=== PATIENT | female | born 1975 | race African-American/Black ===

== ENCOUNTER 2018-11-11 13:24 | Inpatient (IN) ==
[2018-11-11] MEDS ORDERED: MORPHINE IV ONE (14:06)
[2018-11-11] MEDS ORDERED: ZOFRAN IM ONE (14:06)
--- NOTE | 2018-11-11 14:17 | PROVIDER DOCUMENTATION ---
HPI-Abdominal Pain/GI Problem - General Chief Complaint: Abdominal Pain Stated Complaint: N/V, ABD PAIN Time Seen by Provider: 11/11/18 14:01 Source: patient Allergies/Adverse Reactions: Patient Allergies Allergy/AdvReac Type Severity Reaction Status Date / Time latex Allergy ITCHING Verified 11/11/18 14:46 tuberculin, purified protein Allergy RASH Verified 11/11/18 14:46 deriva [tuberculin,purif.prot.deriv.] Home Medications: Home Medication List Medication Instructions Recorded Confirmed Last Taken Type NK [No Home Medications] 11/11/18 11/11/18 Unknown History - History of Present Illness-ABD Nature of Presenting Problems: 43 YEAR OLD FEMALE WHO SELF DENIES ANY PAST MEDICAL HISTORY CAME IN TODAY WITH EPIGASTIC ABDOMINAL DISCOMFORT THAT STARTED TODAY. ACCORDING TO THE PATIENT, IT RADIATES TO THE BACK AND IS ASSOCIATED WITH NAUSEA AND VOMITING. PATIENT ALSO ENDORSE DIARRHEA. DENIES FEVER, CHILL, NIGHT SWEATS, DIZZINESS, LIGHTHEADEDNESS, BLURRY VISION, SORE THROAT, CHEST PAIN, DYSPNEA, CONSTIPATION, MYALGIA, ARTHRALGIA, NEW RASH/LESION, AND HEAT OR COLD INTOLERANCE. DENIES ANY RECENT TRAVEL. Review of Systems - Adult - REVIEW OF SYSTEMS - ADULT Constitutional: denies: chills, fever, night sweats Eyes: reports: no symptoms reported Ears, Nose, Mouth & Throat: denies: throat pain Cardiovascular: denies: chest pain, irregular heart rate, palpitations, syncope Respiratory: denies: cough, shortness of breath Gastrointestinal: reports: abdominal pain (EPIGASTRIC REGION THAT RADIATES TO THE BACK.), diarrhea, nausea, vomiting. denies: hematemesis, constipation Genitourinary: reports: no symptoms reported Musculoskeletal: reports: no symptoms reported Integumentary: denies: rash Neurological: denies: ataxia, syncope Psychiatric: reports: no symptoms reported Endocrine: denies: cold intolerance, heat intolerance Hematologic/Lymphatic: reports: no symptoms reported Allergic/Immunologic: reports: no symptoms reported Past History - Adult - PAST MEDICAL HISTORY-ADULT Review of Records: reports: Old Records Reviewed Major Childhood Illnesses: reports: denies history Cardiovascular: reports: denies history Respiratory: reports: denies history Gastrointestinal: reports: denies history Obstetrical/Gynecological: reports: denies history Genitourinary: reports: denies history Musculoskeletal: reports: denies history Neurological: reports: denies history Psychiatric: reports: denies history Endocrine/Immune: reports: denies history Other Conditions: reports: denies history - PRIOR SURGERIES/PROCEDURES Surgical/Procedure History: reports: other (breast biopsy to right breast) - PRIOR HOSPITALIZATIONS Prior Hospitalizations: reports: none - IMMUNIZATION STATUS Childhood Immunizations: See Nurse Assessment Flu Vaccine: NUTD - FAMILY HISTORY Family History: reviewed, not pertinent Physical Exam-General - PHYSICAL EXAM-ADULT Initial Vital Signs Reviewed: Yes - CONSTITUTIONAL General Appearance: alert, mild distress - EYES Eyes: PERRL/EOMI. negative: pink conjunctivae, photophobia, subconjunctival hemorrhage - HEAD, EARS, NOSE, MOUTH & THROAT HENMT: normocephalic/atraumatic, moist mucous membranes - NECK Neck: non-tender, full range of motion, normal inspection - RESPIRATORY Respiratory: chest non-tender, lungs clear, normal breath sounds - CARDIOVASCULAR Cardiovascular: normal peripheral pulses, regular rate, rhythm, no edema, no gallop, no JVD, no murmur - GASTROINTESTINAL (ABDOMEN) Abdominal Exam: normal bowel sounds, guarding, rigid, tenderness (TENDERNESS ON PALPATION; NO REBOUND TENDERNESS.). negative: rebound, McBurney's point tenderness, Ibarra's sign, Rovsing's sign - MUSCULOSKELETAL Back Exam: normal inspection, no CVA tenderness Extremity: normal range of motion - SKIN Integumentary: normal color, normal turgor, warm/dry - NEUROLOGIC Neurologic: grossly normal - PSYCHIATRIC Psych/Mental Status: normal mood/affect, normal thought content, normal thought process, oriented x 3 Progress - PLAN OF CARE/RESULTS Progress/Plan/Lab Results: Vital Signs - 8 hr 11/11/18 14:04 Pulse Rate 80 Respiratory Rate 22 Blood Pressure 101/67 Orders Category Date Time Status CT ABD/PELVIS W/IV CONT ONLY [CT] Stat Exams 11/11/18 14:08 Ordered AMYLASE [CHEM] Stat Lab 11/11/18 14:06 Ordered BETA SUBUNIT HCG [PIMENTEL] Stat Lab 11/11/18 14:06 Ordered CBC WITH ELECTRONIC DIFF [HEME] Stat Lab 11/11/18 14:06 Uncollected COMPREHENSIVE METABOLIC PANEL [CHEM] Stat Lab 11/11/18 14:06 Uncollected LIPASE [CHEM] Stat Lab 11/11/18 14:06 Uncollected MAGNESIUM [CHEM] Stat Lab 11/11/18 14:06 Uncollected URINALYSIS DIPSTICK ONLY PL [URINALYSIS] Stat Lab 11/11/18 14:06 Uncollected Morphine Med 11/11/18 14:06 Discontinued 4 mg IV NOW ONE Ondansetron [Zofran] Med 11/11/18 14:06 Discontinued 4 mg IM NOW ONE Result Diagrams: 11/11/18 14:30 11/11/18 14:30 - REASSESSMENT Reassessment #1 Time Reassessed: 16:24 Status: other (FOBT POSITIVE; WILL TRANSFUSE. IMAGE REVEAL: Multiple nonspecific pelvic masses which may simply be an enlarged uterus containing multiple fibroids as well as multiple large left ovarian cysts. Gynecological consultation and further workup recommended. WHICH I HAVE INFOMRED THE PATIENT. GIVEN PATIENT H/H IS LOW, I WILL START TRANSUFION AND CALL HOSPITALIST FOR FUR THER GI WORK UP. PENDING HOSPITALIST TO CALL BACK.) Reassessment #2 Time Reassessed: 16:47 Status: other (SPOKE TO PATIENT REGARDING HER CT FINDING WHICH I HAVE INFORMED THAT IF NO SERGING MACHINE OPERATOR AUTOMATIC IS CONSULTED WHILE INPATIENT, SHE IS TO FOLLOW UP WITH SERGING MACHINE OPERATOR AUTOMATIC OF HER CHOICE IAN ONCE SHE IS DISHCARGED. HOSPITALIST CALLED BACK AND INFORMED OF GIB; APPRECAITE THEIR ASSISTANCE.) Departure - Departure Date of Disposition Decision: 11/11/18 Time of Disposition Decision: 16:25 DIAGNOSIS: GIB (gastrointestinal bleeding), Ovarian cyst, Uterine fibroid Disposition: ADMITTED INPATIENT 09 Certified Medical Emergency: Emergent Condition: Serious Referrals and Follow-Ups: None,PCP [Primary Care Provider] - - Critical Care Note This patient required my direct & personal management of CC.: No Attestation - Physician/ MARIA M Attestation Patient care was provided by Advanced Practice Provider:: No The physician spent face to face time with patient:: Yes Advanced Practice Provider documentation review:: Supervising physician onsite and consulted in the evaluation and care of this patient. The physician did have a face to face encounter with the patient.
[2018-11-11] MEDS ORDERED: NS 1,000 ML IV ONE (14:21)
[2018-11-11 14:44] LABS: URINE SOURCE CLEAN CATCH
[2018-11-11 14:46] LABS: BILIRUBIN URINE NEGATIVE (NEGATIVE); BLOOD URINE 3+ (NEGATIVE); CLARITY CLEAR (CLEAR); COLOR YELLOW; GLUCOSE URINE NEGATIVE (NEGATIVE); KETONE URINE TRACE mg/dL (NEGATIVE); LEUKOCYTES URINE TRACE (NEGATIVE); NITRITE URINE NEGATIVE (NEGATIVE); PH URINE 6.5; PROTEIN URINE 1+(30 mg/dL) mg/dL (NEGATIVE); UROBILINOGEN URINE NORMAL
[2018-11-11 14:59] LABS: BASO# 0.03 X1000 (0.0-0.2); BASO% 0.3 % (0.0-0.8); EOS# 0.02 X1000 (0.0-0.7); EOS% 0.2 % (0.0-10.0); HEMATOCRIT 22.4 % (37.0-47.0); IMM GRAN# 0.04 X1000 (0.0-0.04); IMM GRAN% 0.4 % (0.0-0.5); LYMPH# 0.72 X1000 (1.2-3.4); LYMPH% 6.4 % (20.5-51.1); MCH 16.7 PG (27-31); MCHC 24.6 g/dL (33-37); MCV 67.9 FL (81-99); MONO# 0.58 X1000 (0.11-0.59); MONO% 5.2 % (1.7-9.3); MPV 8.6 FL (7.4-10.4); NEUT# 9.87 X1000 (1.4-6.5); NEUT% 87.5 % (42.2-75.2); PLT 365 X1000 (130-400); RDW 21.9 % (11.5-14.5); WBC 11.26 X1000 (4.8-10.8)
[2018-11-11 15:02] LABS: AGAP 13; ALBUMIN 4.3 g/dL (3.5-5.0); ALKALINE PHOSPHATASE 42 U/L (32-104); BUN 5 mg/dL (8-22); CHLORIDE 106 mmol/L (98-107); COSMO 282; CREATININE 0.6 mg/dL (0.5-0.9); ESTIMATED GFR > 60; GLUCOSE 120 mg/dL (70-104); GOT 12 U/L (10-30); GPT 9 U/L (10-36); HEMOGLOBIN 5.5 g/dL (12.0-16.0); LIPASE 14 U/L (13-60); MAGNESIUM 1.6 mg/dL (1.5-2.7); SODIUM 142 mmol/L (136-145); TCO2 23 mmol/L (25-35); TOTAL PROTEIN 7.1 g/dL (6.3-8.3)
--- NOTE | 2018-11-11 15:49 | Diag Imaging Result Doc PS360 ---
EXAM: CT ABD/PELVIS W/IV CONT ONLY HISTORY: EPIGASTIC ABD PAIN + N + V TECHNIQUE: CT abdomen and pelvis with intravenous contrast COMPARISON: None. FINDINGS: No calcified gallstones or adjacent inflammation. Normal liver, spleen, pancreas, adrenal glands, and kidneys. Normal aorta. No bowel obstruction. Pelvic mass measuring 8.8 x 12.3 x 11.1 cm. With in this are multiple hypodense areas measuring up to 5.2 cm. This may be an enlarged uterus containing multiple fibroids. 6.0 cm left adnexal cyst. There is an additional hypodense lesion measuring 5.8 cm in the posterior left pelvis. The urinary bladder is only mildly distended. IMPRESSION: Multiple nonspecific pelvic masses which may simply be an enlarged uterus containing multiple fibroids as well as multiple large left ovarian cysts. Gynecological consultation and further workup recommended. This exam was performed using automated exposure control, adjustment of mA or kV according to patient size, and/or use of iterative reconstruction technique. Electronically signed by Mich Dow 11/11/2018 3:46 PM
[2018-11-11 15:55] LABS: OCCULT BLOOD 1 POSITIVE (NEGATIVE)
[2018-11-11] MEDS ORDERED: NS 500 ML IV ONE (16:55)
[2018-11-11] MEDS ORDERED: TYLENOL PO ONE (16:55)
[2018-11-11] MEDS ORDERED: ZOFRAN IV PRN (21:03)
[2018-11-11] MEDS: NICODERM PATCH TD SCH (21:53)
[2018-11-11] MEDS: MORPHINE IV PRN (21:53)
--- NOTE | 2018-11-11 22:35 | HISTORY AND PHYSICAL ---
CHIEF COMPLAINT: Nausea, abdominal pain. HISTORY OF PRESENT ILLNESS: The patient is a 43-year-old female who presented to the hospital with epigastric abdominal pain. After questioning, she notes that she does take multiple Goody's powders a day and has so for many years. She notes she has been having epigastric pain, seems to radiate to her back. ALLERGIES: Latex and TB skin test causing a rash. MEDICATIONS: She is on no prescription medications, but does note that she takes multiple Goody's powders a day as well as Aleve or ibuprofen. REVIEW OF SYSTEMS: Positive epigastric abdominal pain. Denies fevers, chills, cough, congestion. Denies sore throat, headaches, blurred vision. Denies any focalized numbness, tingling, weakness in her extremities. Denies dysuria, urinary frequency, or urgency. Denies constipation, melena, hematochezia. PAST MEDICAL HISTORY: She denies any chronic active medical problems, other than arthritis, for which she takes Goody's Powders. She did have a breast biopsy that was negative. FAMILY HISTORY: Noncontributory. SOCIAL HISTORY: Patient denies alcohol or illicit substance use. PHYSICAL EXAMINATION: VITAL SIGNS: Reviewed. She is afebrile, pulse 80, respiratory 22, BP 85 to 101 systolic. GENERAL: Patient is awake, alert. She is sitting up on the side of the bed. She is in no current respiratory distress. HEENT: Normocephalic, atraumatic. PAVITHRA. NECK: Supple. No JVD. CARDIOVASCULAR: Regular rate. No murmurs. CHEST: Clear, nonlabored. ABDOMEN: Soft. Positive bowel sounds. She does have tenderness in the epigastric region. No rebound. No guarding. EXTREMITIES: Moves all extremities. No edema. NEUROLOGIC: No focal neurological changes. SKIN: Warm, dry. No rashes. LABS: Hemoglobin and hematocrit 5 and 22. Glucose 120. ASSESSMENT: 1. Anemia from gastrointestinal bleeding. She is Heme-positive. 2. Gastrointestinal bleed, likely upper GI. 3. Uterine fibroids. PLAN: We will admit patient to the hospital. Type, cross, and transfuse 2 units. We will transfer to [facility], [place], as she will need to have endoscopy given her large amount of Goody's powders that she takes and the fact that she is Heme-positive. Attempted to answer patient's questions about transfusions, risks, and benefits. cc: Kal Urbina MD
[2018-11-12] MEDS: MORPHINE IV PRN (04:11)
[2018-11-12 08:10] LABS: HEMATOCRIT 25.8 % (37.0-47.0); HEMOGLOBIN 7.1 g/dL (12.0-16.0); MCH 19.8 PG (27-31); MCHC 27.5 g/dL (33-37); MCV 71.9 FL (81-99); MPV 9.8 FL (7.4-10.4); RBC 3.59 XMIL (4.2-5.4); RDW 21.9 % (11.5-14.5); WBC 7.81 X1000 (4.8-10.8)
[2018-11-12 08:32] LABS: AGAP 11; ALB/GLOB RATIO 1.3; ALBUMIN 3.7 g/dL (3.5-5.0); ALKALINE PHOSPHATASE 42 U/L (32-104); BUN 4 mg/dL (8-22); CALCIUM 8.8 mg/dL (8.8-10.2); CHLORIDE 109 mmol/L (98-107); COSMO 278; CREATININE 0.8 mg/dL (0.5-0.9); ESTIMATED GFR > 60; GLUCOSE 87 mg/dL (70-104); GOT 17 U/L (10-30); GPT 12 U/L (10-36); MAGNESIUM 1.9 mg/dL (1.5-2.7); POTASSIUM 4.1 mmol/L (3.5-5.1); SODIUM 141 mmol/L (136-145); TCO2 21 mmol/L (25-35); TOTAL BILIRUBIN 0.66 mg/dL (0.20-1.00); TOTAL PROTEIN 6.6 g/dL (6.3-8.3)
[2018-11-12] MEDS: NICODERM PATCH TD SCH (08:42)
[2018-11-12] MEDS: PROTONIX PO SCH ×2 (12:00→20:24)
--- NOTE | 2018-11-12 12:51 | PROGRESS NOTE ---
DATE: 11/12/2018 SUBJECTIVE: This patient is lying comfortably in bed. She is complaining of lower abdominal pain and, also, she is complaining of some dysphagia. As per the patient, she has been losing weight for the past couple of years. Also, she has been taking Goody Powder on a daily basis and multiple times a day, up to 6 times. She denies melena. On the other hand, she has been having heavy menstrual periods. Her MCV is low as well as her hemoglobin. Initially, it was 5.5 but after 2 PRBCs, it increased to 7.1 which is still low but she is not having symptoms and vital signs are stable. Before admission, she was having dizziness. OBJECTIVE: Vital Signs: Temperature 98.6 degrees, pulse 81, respiratory rate 18, blood pressure 122/72, oxygen saturation 98 on room air. HEENT: Head normocephalic. No trauma. PERRLA. Neck: Supple. No JVD. No masses. Central trachea. Chest: Clear to auscultation. No wheezing. No rales. Abdomen: Soft. Tenderness to palpation at the level of the lower abdomen. No signs of peritoneal irritation. Extremities: No edema, no clubbing, no cyanosis. Neurological Examination: The patient is alert and oriented x3. No focal deficits. Laboratory: WBCs 7.8, hemoglobin 7.1, platelet count 292,000. Sodium 141, potassium 4.1, chloride 109, bicarbonate 21, BUN 4, creatinine 0.8, glucose 87, calcium 8.8. ASSESSMENT AND PLAN: 1. Symptomatic anemia. She does have a positive occult blood in the stool but also, she is having menorrhagia. I have consulted both gastroenterology department and obstetrics/gynecology to evaluate this patient. 2. Uterine fibroids and menorrhagia, status post 2 units of packed red blood cells. I have consulted obstetrics/gynecology to evaluate this patient. As per the patient, she has been 2- 1/2 years with heavy menstrual periods. 3. Possible upper gastrointestinal bleed. This patient has a risk factor for upper gastrointestinal bleed. She has been taking Goody Powders multiple times a day. cc: Mik Rehman MD MTDDavid
--- NOTE | 2018-11-12 14:46 | Diag Imaging Result Doc PS360 ---
EXAM: US PELVIC NON-OB COMPLETE 11/12/2018 HISTORY: uterine fibroids, ovarian mass TECHNIQUE: Transabdominal scan COMMENT: There are numerous myometrial masses. There is a fairly large heterogeneous mass in a submucosal location in the fundus anteriorly measuring up to 4.3 cm in diameter. Posteriorly there is a subserosal mass which measures in excess of 5.5 cm. The overall size of the uterus is 16.6 x 10 x 8.5 cm with an endometrial stripe (where it can be recognized) of 7 mm. The right ovary is demonstrated measuring up to 4.2 cm. There is what appears to be a hemorrhagic ovarian cyst on the left measuring 5.9 cm in greatest dimension. IMPRESSION: Fibroid uterus. Left ovarian cyst. This is smaller than the abnormality which was demonstrated on the CT of 11/11/2018. It is possible that only the anterior portion of the multilocular cystic mass which was demonstrated on the CT is visible on the ultrasound. Electronically signed by Seun Rodríguez 11/12/2018 2:44 PM
--- NOTE | 2018-11-12 19:10 | GASTROENTEROLOGY CONSULTATION ---
DATE: 11/12/2018 REASON FOR CONSULT: Anemia. HISTORY OF PRESENT ILLNESS: Ms. Bean is a 43-year-old female who was [facility] with complaints of shortness of breath, abdominal pain, describing it as sharp and rating it as 10 out of 10, throat pain, nausea, vomiting, diarrhea, and denied noticing blood in the stools. She came to [facility] in the afternoon feeling weak, dizzy, drowsy. She mentioned having swallowing problems in the past, but since 1 month she has been eating well. She takes 6 packs of BC powders every day for her headaches. Today, she had 1 bowel movement, liquid form. Expressed feeling anxious, has history of smoking pot, alcohol 1-2 or shots frequently, and smokes 1/2 a pack of cigarettes every other day. She has lost approximately 30-40 pounds in the last 2 years. Her last menstrual cycle was 2 weeks back, had heavy bleeding and huge clots lasting for 7 days and gets it twice a month. PAST MEDICAL HISTORY: Breast tumor, alcohol abuse, drug abuse, smoker. SURGICAL HISTORY: Breast tumor removed. ALLERGIES: Latex, TB shots, penicillin and hydrocodone. MEDICATIONS: None SOCIAL HISTORY: She is single, has 1 daughter, used to work at [employer], quit her job last week, smokes 1/2 pack of cigarettes every other day, drinks 1-2 shots frequently of alcohol and does pot once or twice a month. FAMILY HISTORY: Mother's side, the family has breast cancer, leukemia, glaucoma, hypertension, hyperlipidemia, and thyroid and cancer. REVIEW OF SYSTEM: As per HPI. Otherwise, 12 point review of system is negative. PHYSICAL EXAMINATION: Vital Signs: Temperature 98.6 degrees, pulse 81, respirations are 18, blood pressure 122/72, oxygen saturation is 98% on room gender. Weight 115.7 pounds, BMI 18.2 kg per meter square. General: Alert, oriented x3, and in no acute distress. HEENT: Pale conjunctivae. No icterus. PERRL. Neck: Supple. Lungs: Clear to auscultation in anterior and posterior simental. Heart: Regular rate and rhythm. No gallops, rubs, or murmur heard on auscultation. Abdomen: Soft, tender, nondistended. Active bowel sounds heard in all 4 quadrants. Extremities: No cyanosis, clubbing, or edema noted. 2+ pedal pulses present bilaterally. Neuro: Alert, oriented x3. Nonfocal. Cranial nerves 2-12 grossly intact. LABORATORIES: WBC is 7.8, RBC is 3.59, hemoglobin is 7.1, hematocrit is 25.8, platelet count is 292,000. Sodium is 141, potassium is 4.1, chloride is 109, carbon dioxide is 21, anion gap is 11, BUN is 4, creatinine 0.8, glucose is 87, calcium is 8.8, magnesium 1.9. Total bilirubin 0.66, AST 17, ALT is 12. Alkaline phosphatase 42, amylase 86, lipase is 14. Urine showed a trace of protein, trace blood, 3+ blood, trace of white blood cells. IMAGING: Abdominal CT and pelvis showed multiple nonspecific pelvic masses which may be simply due to an enlarged uterus, connected to the multiple fibroids as well as multiple large ovarian cysts. IMPRESSION AND PLAN: Abdominal pain Nausea, vomiting. Gastrointestinal bleed. Dysphagia Uterine fibroid. Smoker Drug abuse Alchohol abuse. PLAN: Patient clear liquids for now, NPO after midnight. We will be doing an EGD tomorrow, start her on proton pump inhibitor 40 mg p.o. twice a day, antiemetics Zofran for nausea. Based on her EGD findings, further plan of care will be discussed. Risks, benefits, and alternatives of the surgery have been explained to the patient. Patient verbalized understanding of the instructions. Discussed the risk of smoking, consuming alcohol and pot, advised cessation of all these products. This plan was discussed with Dr. Jansen and the patient. Thank you for your consult. consult. Please call us for any further questions or concerns. Dictated by BEKAH Garcia for Blayne Jansen MD Physician Attestation I have seen and examined the patient. I have discussed and reviewed the the note by Rola GODFREY and agree with findings and plan as documented. In brief, Ms. Liliana Bean is a 43 year old woman with history of KRISTY, menorrhagia, chronic headaches who presented with worsening symptomatic KRISTY. She reports solid-food dysphagia and weight loss over the last 1-2 years. She takes copious amounts of BC powders daily and has heaving menses that can last 1-2 weeks. She reports reflux and epigastric pain for which she self-medicates with Tums and antacids. No PPI use. She denies prior EGD/colonoscopy. Her anemia can certainly be GI related given copious NSAID use. Continue PPI IV BID and make NPO after MN for EGD with Dr. Leon tomorrow. If negative, then recommend outpatient colonoscopy and [employer]ING [employer] MACHINE evaluation given menorrhagia. MTDD
--- NOTE | 2018-11-13 04:47 | CONSULTATION ---
DATE OF CONSULTATION: 11/12/2018 ADMITTING PHYSICIAN: Mik Rehman MD. REASON FOR CONSULTATION: Uterine mass, vaginal bleeding, and anemia. HISTORY OF PRESENT ILLNESS: A 43-year-old G2, P1-0-1-1, presented to the ER on 11/11 with a complaint of epigastric abdominal pain and dysphagia. Hemoglobin upon admission was 5.5, and CT of the pelvis showed a pelvic mass measuring 8.8 x 12.3 x 11.1 cm with multiple hypodense areas measuring up to 5.2 cm, and also showed a 6 cm left adnexal mass. The patient was admitted to the floor and transfused with 2 units of packed red blood cells. She also had a positive Hemoccult and GI was consulted. Upon further interviewing, patient noted menorrhagia and Gynecology was subsequently consulted. The patient states she has had heavy irregular periods for approximately 2 years. She says periods occur q.2 to 4 weeks, she passes large blood clots during that time. During her heaviest day, she uses about 2 pads an hour. She denies any pain within menses. She has noticed worsening shortness of breath and chest pain, which is likely related to her severe anemia. She is currently on her period, which she states started today. She does complain of pelvic pain from that is unrelated to menses. She also complains of dysphagia and inability to swallow solid foods. She has noticed an unintentional weight loss of approximately 60 pounds over the last 2 years. She does not follow with a primary care doctor and has not seen a res habilitation assistant in several years. REVIEW OF SYSTEMS: Negative except as mentioned in HPI. OBSTETRIC HISTORY: 1. G1, an elective at 6 weeks with a D and C (1993). 2. G2, spontaneous vaginal delivery at 40 weeks, female, 6 pounds 10 ounces (2001). GYNECOLOGIC HISTORY: Her last Pap was in 2011 and she believes it was normal. She does have a history of an abnormal Pap smear in approximately 2007, but was unsure of the results. She is not using anything for contraception. She is sexually active. She has a remote history of gonorrhea, Chlamydia in her teenage years. She was 16 at menarche. PAST MEDICAL HISTORY: Frequent headaches, anemia. MEDICATIONS: Frequent Goody's powder for headaches. ALLERGIES: Latex. SURGICAL HISTORY: Breast biopsy in 1997, and dilation and curettage in 1993. SOCIAL HISTORY: She smokes a half pack per day. She admits to occasional alcohol use and occasional marijuana use. FAMILY HISTORY: Mother with glaucoma. Aunt with breast cancer. Uncle with colon cancer. VITAL SIGNS: Temperature 98.6 degrees, blood pressure 122/72, heart rate 81, respiratory rate 18, oxygen saturation 98% on room air. LABORATORY DATA: White blood cell count 7.8, hemoglobin 7.1, hematocrit 25.8, platelets 292,000. Hemoglobin on admission 5.5, status post 2 units packed red blood cells. Sodium 141, potassium 4.1, chloride 109, CO2 of 21, BUN 4, creatinine 0.8. Blood sugar 87, AST 17, ALT 12, amylase 86, lipase 14. TSH 1.3. Blood type A positive with negative antibody screen. Hemoccult stool positive. Urinalysis, trace white blood cells, 3+ blood, 1+ protein. IMAGING DATA: CT abdomen and pelvis with IV contrast, there is a pelvic mass measuring 8.8 x 12.3 x 1.1 cm, within this are multiple hypodense areas measuring up to 5.2 cm. This may be an enlarged uterus containing multiple fibroids, 6 cm left adnexal cyst. There is an additional hypodense lesion measuring 5.8 cm in the posterior left pelvis. The urinary bladder is only mildly distended. PHYSICAL EXAM: General: Alert, female in no acute distress with thin appearance. HEENT: Normocephalic, atraumatic. Heart: Regular rate and rhythm. Lungs: Clear to auscultation bilaterally. No respiratory distress. Abdomen: Normal bowel sounds. Soft, solid mass palpated below the umbilicus. Tenderness to palpation atop mass. No rebound or guarding. Pelvic: On vaginal exam, uterus mobile, tender to palpation. Large mass palpated at umbilicus, tender to palpation. Vaginal vault lesion noted on bimanual exam, a speculum exam performed. Cervix appeared without lesion, and no active bleeding coming from the cervix. Several hyperpigmented lesions noted vaginally, bluish-purple in coloration and raised to palpation. Also, at the introitus, small white raised plaques noted. Extremities: No clubbing, cyanosis, or edema. ASSESSMENT AND PLAN: A 43-year-old, G2, P1-0-1-1- with multiple uterine masses, hyperpigmented vaginal lesions, anemia, vaginal bleeding, dysphagia. 1. Currently hemodynamically stable past 2 units of packed red blood cells. Vaginal bleeding not heavy currently. 2. We will order a pelvic ultrasound to assess uterine masses. Differential diagnosis, leiomyomas versus leiomyosarcomas. Ovarian cyst also noted on CT scan measuring 6 cm. We will order CA-125. 3. Recommend Pap smear, endometrial biopsy, biopsy of vaginal lesions. 4. Dysphagia. Workup for Gastroenterology. [facility]
[2018-11-13] MEDS: PROTONIX PO SCH ×2 (07:59→20:51)
[2018-11-13] MEDS: NICODERM PATCH TD SCH (08:01)
[2018-11-13 08:39] LABS: AGAP 12; BUN 6 mg/dL (8-22); CALCIUM 9.4 mg/dL (8.8-10.2); CHLORIDE 104 mmol/L (98-107); COSMO 276; CREATININE 0.7 mg/dL (0.5-0.9); ESTIMATED GFR > 60; GLUCOSE 82 mg/dL (70-104); POTASSIUM 3.7 mmol/L (3.5-5.1); SODIUM 140 mmol/L (136-145); TCO2 24 mmol/L (25-35)
[2018-11-13 08:54] LABS: BASO# 0.05 X1000 (0.0-0.2); BASO% 0.6 % (0.0-0.8); EOS# 0.12 X1000 (0.0-0.7); EOS% 1.5 % (0.0-10.0); HEMATOCRIT 29.9 % (37.0-47.0); IMM GRAN# 0.02 X1000 (0.0-0.04); IMM GRAN% 0.3 % (0.0-0.5); LYMPH# 1.55 X1000 (1.2-3.4); MCH 19.3 PG (27-31); MCHC 26.8 g/dL (33-37); MONO# 0.66 X1000 (0.11-0.59); MONO% 8.5 % (1.7-9.3); MPV 9.8 FL (7.4-10.4); NEUT# 5.36 X1000 (1.4-6.5); NEUT% 69.1 % (42.2-75.2); PLT 288 X1000 (130-400); RBC 4.15 XMIL (4.2-5.4); RDW 22.8 % (11.5-14.5); WBC 7.76 X1000 (4.8-10.8)
[2018-11-13 09:14] LABS: IRON SATURATION 5 %; TIBC 479 ug/dL; TOTAL IRON 22 ug/dL (49-151); UNBOUND IRON 457 ug/dL (112-346)
[2018-11-13 09:22] LABS: BANDS 2 % (0-1); FERRITIN 13 ng/mL (13-150); LYMPHS 22 % (21-51); MONO 6 % (1-9); NRBC 1 % (0-0); SEGS 66 % (42-75)
[2018-11-13 09:23] LABS: ANISOCYTOSIS 3+; HYPOCHROM 2+; LARGE PLATELETS 1+; MICROCYTOSIS 3+
[2018-11-13] MEDS ORDERED: DIPRIVAN 1% ONE (09:33)
[2018-11-13] MEDS ORDERED: XYLOCAINE-MPF 2% ONE (10:13)
--- NOTE | 2018-11-13 10:38 | ENDOSCOPY OPERATIVE NOTE ---
[facility] ENDOSCOPY OPERATIVE NOTE , PATIENT: Liliana Bean ADMISSION DATE: MR#: [id number] : 1975 EGD PROCEDURE REPORT PROCEDURE DATE: 11/13/2018 SURGEON: Doug Leon MD STATUS: inpatient [employer]INE OPERATOR: Emma Cohen and David Breaux PREOPERATIVE DIAGNOSIS: The patient is a 43 yr old female here for an EGD due to Anemia; Iron def An emia, S/p 2 Units PRBcs; H/o BC powders 6 per day, Menorrhagia, Smoker. PROCEDURE PERFORMED: EGD, diagnostic MEDICATIONS: Per Anesthesia TOPICAL ANESTHETIC: none CONSENT: The patient understands the risks and benefits of the procedure and understands that these r isks include, but are not limited to: sedation, allergic reaction, infection, perforation and/or bleeding. Alternative means of evaluation and treatment include, among others: physical exam, x-rays, and/or surgical intervention. The patient elects to proceed with this endoscopic procedure. HISORY AND PHYSICAL: 11/13/2018 function. Hand hygiene and appropriate measures for infection prevention was taken. After the risks, benefits and alternatives of the procedure were thoroughly explained, Informed consent was verified, confirmed and timeout was successfully executed by the treatment team. The patient was anesthetized with topical anesthesia and the [id number]-[id number] ([id number]) endoscope was introduced through the mouth and advanced to the second portion of the duoden um. Retroflexion was performed in the stomach and revealed no abnormalities. The gastroscope was then slowly withdraw n and removed. ESOPHAGUS: Z line at 42 cms. The mucosa of the esophagus appeared normal. STOMACH: Erosive gastritis in the distal antrum with small superficial gastric antral ulcer measuring 5 mm with no active bleeding or stigmata of bleeding no visible vessel. DUODENUM: Mild duodenal inflammation was found in the duodenal bulb. The duodenal mucosa showed no abnormalities in the 2nd part of the duodenum. SPECIMENS REMOVED: No ADVERSE EVENTS: There were no complications. POSTOPERATIVE DIAGNOSIS: 1. Z line at 42 cms 2. The mucosa of the esophagus appeared normal 3. Erosive gastritis in the distal antrum with small superficial gastric antral ulcer measuring 5 mm with no active bleeding or stigmata of bleeding no visible vessel 4. Duodenal inflammation was found in the duodenal bulb 5. The duodenal mucosa showed no abnormalities in the 2nd part of the duodenum RECOMMENDATIONS: 1. Start Iron C BID and MVI Qd for 3 months; Avoid NSAIDs; Continue PPI BID for 3 months, See Gynecology for Menorrhagia; Quit smoking and alochol. 2. RTC 3 weeks. 3. Begin an anti-reflux lifestyle: avoid acidic foods and drinks (like coffee and soda), do not lie down three hours after eating, elevate the head of your bed 6 to 9 inches, stop smokiing and reduce weight if needed. REPEAT EXAM: Return in 3 months for EGD. Doug Leon MD eSigned: Doug Leon MD 11/13/2018 10:37 AM cc: PATIENT NAME: Liliana Bean MR#: [id number]
[2018-11-13] MEDS: MORPHINE IV PRN ×2 (11:02→20:48)
[2018-11-13] MEDS: ICAR-C PO SCH ×2 (12:35→20:51)
[2018-11-13] MEDS: CENTRUM SILVER PO SCH (12:35)
--- NOTE | 2018-11-13 13:23 | PROVIDER PROGRESS NOTE ---
- Subjective Pt seen and examined. Pt is s/p 2 units of pRBC and EGD secondary to symptomatic anemia. Pt reports still with vaginal bleeding. Describes blood loss as watery and denies passage of blood clots. Since blood transfusion reports improvement in symptoms. Denies SOB/CP. Physical Exam Objective Vital Signs - 8 hr 11/13/18 07:41 11/13/18 09:28 11/13/18 10:54 Temperature 98.7 F 98.7 F Pulse Rate 51 L 51 L 60 Respiratory Rate 21 21 19 Blood Pressure 130/64 130/64 118/67 O2 Sat by Pulse Oximetry 100 95 - Constitutional General Appearance: appears well, alert, no apparent distress - RESPIRATORY Respiratory: chest non-tender, lungs clear, normal breath sounds - CARDIOVASCULAR Cardiovascular: regular rate, rhythm - GASTROINTESTINAL (ABDOMEN) Abdominal Exam: non tender, soft - GENITOURINARY Female Genitalia/Pelvic Exam: external exam normal, active bleeding (examinde recent peripad. Pad full with bright red blood, no clots) - MUSCULOSKELETAL Extremity: non-tender, no calf tenderness - PSYCHIATRIC Psych/Mental Status: normal mood/affect, oriented x 3 Active Medications Generic Name Dose Route Start Last Admin Trade Name Freq PRN Reason Stop Dose Admin Iron/Vitamin C 1 each 11/13/18 11:30 11/13/18 12:35 Icar-C PO 1 each BID SURI Administration Morphine Sulfate 2 mg 11/11/18 21:03 11/13/18 11:02 Morphine IV 2 mg Q3H PRN PRN Administration Pain Multivitamins/Minerals 1 each 11/13/18 11:30 11/13/18 12:35 Centrum Silver PO 1 each DAILY SURI Administration Nicotine 14 mg 11/11/18 21:04 11/13/18 08:01 Nicoderm Patch TD 14 mg DAILY SURI Administration Ondansetron HCl 4 mg 11/11/18 21:03 Zofran IV Q4-6H PRN PRN Nausea And Vomiting Pantoprazole Sodium 40 mg 11/12/18 11:45 11/13/18 07:59 Protonix PO Not Given BID SURI Laboratory Results - last 24 hr 11/13/18 11/13/18 11/13/18 07:13 07:13 07:13 WBC RBC Hgb Hct MCV MCH MCHC RDW Std Deviation Plt Count MPV Immature Gran % (Auto) Neut % (Auto) Lymph % (Auto) [place] % (Auto) Eos % (Auto) Baso % (Auto) Immature Gran # (Auto) Neut # (Auto) Lymph # (Auto) [place] # (Auto) Eos # (Auto) Baso # (Auto) Segmented Neutrophils Band Neutrophils Lymphocytes Monocytes Nucleated RBCs Atypical Lymphocytes Hypochromia Large Platelets Anisocytosis Microcytosis Sodium Potassium Chloride Carbon Dioxide Anion Gap BUN Creatinine Estimated GFR/1.73 m2 BUN/Creatinine Ratio Glucose Calculated Osmolality Calcium Iron 22 L TIBC 479 % Saturation 5 Unsat Iron Binding 457 H Ferritin 13 Vitamin B12 827 Folate 14.6 11/13/18 11/13/18 07:13 07:13 WBC 7.76 RBC 4.15 L Hgb 8.0 L Hct 29.9 L MCV 72.0 L MCH 19.3 L MCHC 26.8 L RDW Std Deviation 22.8 H Plt Count 288 MPV 9.8 Immature Gran % (Auto) 0.3 Neut % (Auto) 69.1 Lymph % (Auto) 20.0 L [place] % (Auto) 8.5 Eos % (Auto) 1.5 Baso % (Auto) 0.6 Immature Gran # (Auto) 0.02 Neut # (Auto) 5.36 Lymph # (Auto) 1.55 [place] # (Auto) 0.66 H Eos # (Auto) 0.12 Baso # (Auto) 0.05 Segmented Neutrophils 66 Band Neutrophils 2 H Lymphocytes 22 Monocytes 6 Nucleated RBCs 1 H Atypical Lymphocytes 4.0 Hypochromia 2+ Large Platelets 1+ Anisocytosis 3+ Microcytosis 3+ Sodium 140 Potassium 3.7 Chloride 104 Carbon Dioxide 24 L Anion Gap 12 BUN 6 L Creatinine 0.7 Estimated GFR/1.73 m2 > 60 BUN/Creatinine Ratio 9 Glucose 82 Calculated Osmolality 276 Calcium 9.4 Iron TIBC % Saturation Unsat Iron Binding Ferritin Vitamin B12 Folate US PELVIC NON-OB COMPLETE 11/12/2018 HISTORY: uterine fibroids, ovarian mass TECHNIQUE: Transabdominal scan COMMENT: There are numerous myometrial masses. There is a fairly large heterogeneous mass in a submucosal location in the fundus anteriorly measuring up to 4.3 cm in diameter. Posteriorly there is a subserosal mass which measures in excess of 5.5 cm. The overall size of the uterus is 16.6 x 10 x 8.5 cm with an endometrial stripe (where it can be recognized) of 7 mm. The right ovary is demonstrated measuring up to 4.2 cm. There is what appears to be a hemorrhagic ovarian cyst on the left measuring 5.9 cm in greatest dimension. IMPRESSION: Fibroid uterus. Left ovarian cyst. This is smaller than the abnormality which was demonstrated on the CT of 11/11/2018. It is possible that only the anterior portion of the multilocular cystic mass which was demonstrated on the CT is visible on the ultrasound. EGD PROCEDURE REPORT PROCEDURE DATE: 11/13/2018 POSTOPERATIVE DIAGNOSIS: 1. Z line at 42 cms 2. The mucosa of the esophagus appeared normal 3. Erosive gastritis in the distal antrum with small superficial gastric antral ulcer measuring 5 mm with no active bleeding or stigmata of bleeding no visible vessel 4. Duodenal inflammation was found in the duodenal bulb 5. The duodenal mucosa showed no abnormalities in the 2nd part of the duodenum - Assessment & Plan (1) GIB (gastrointestinal bleeding) Status: Acute (2) Ovarian cyst Status: Acute (3) Uterine fibroid Status: Acute - Progress Note Disposition: ASSESSMENT: 43-year-old, G2, P1-0-1-1- with multiple uterine fibroids, hyperpigmented vaginal lesions, anemia, vaginal bleeding and gastric ulcers. 1. Currently hemodynamically stable s/p 2 units of packed red blood cells. Vaginal bleeding notable. Will start IV estrogen for 24 hr. Reviewed risks of VTE increased with tobacco use. Recommend SCD when in bed and promote increase ambulation. When bleeding resolves will d/c home on Provera 10mg PO BID 2. Pelvic ultrasound shows multiple leiomyomas. Ovarian mass suggestive of a hemorrhagic cyst 3. Recommend Pap smear, endometrial biopsy, biopsy of vaginal lesions as out pt procedure
[2018-11-13] MEDS: PREMARIN IV SCH ×2 (14:24→20:51)
[2018-11-13] MEDS ORDERED: STERILE WATER INJ. ONE (14:30)
--- NOTE | 2018-11-13 18:39 | PROGRESS NOTE ---
DATE: 11/13/2018 SUBJECTIVE: The patient is sitting in bed. She is receiving treatment right now. She had an endoscopic procedure today that showed erosive gastritis in the distal antrum with small superficial gastric antral ulcer, measuring 5 mm, with no active bleeding or stigmata of bleeding, no visible vessel. Duodenal inflammation was found in the duodenal bulb. They have recommended to start with Icar C twice a day and multivitamins daily for 3 months, avoid NSAIDs, continue with proton pump inhibitors, return to the clinic in 3 weeks, and antireflux lifestyle. Pelvic ultrasound done yesterday showed fibroid uterus, left ovarian cyst. OBJECTIVE: Vital Signs: Temperature 98.7 degrees, pulse 60, respiratory rate 19, blood pressure 118/67, oxygen saturation 95% on room air. HEENT: Head normocephalic. No trauma. PERRLA. Neck: Supple. No JVD. No masses. Central trachea. Chest: Clear to auscultation. No wheezing. No rales. Abdomen: Soft. Some tenderness to palpation at the level of the suprapubic area. Extremities: No edema, no clubbing, no cyanosis. Neurological: The patient is alert. She is oriented x3. No focal deficits. LABORATORY: WBC 7.7, hemoglobin 8, hematocrit 29.9, platelets 288,000. Sodium 140, potassium 3.7, chloride 104, bicarbonate 24, BUN 6, creatinine 0.7, glucose 82, calcium 9.4. ASSESSMENT AND PLAN: 1. Symptomatic anemia, better after 2 packed red blood cells. Hemoglobin today is 8. We will continue to monitor this closely. This is likely secondary to menorrhagia. 2. Multiple uterine fibroids with vaginal bleeding. station agent taking care of this patient. She is receiving some intravenous treatment with estrogen, and hopefully she will be discharged with p.o. treatment with Provera twice a day. They are following this patient closely. We will continue following their recommendations. 3. Menorrhagia, as above. 4. Gastric ulcer. We will continue to monitor. We will continue following the recommendations of Pulmonary Department. Continue with proton pump inhibitors. Apparently, she has been taking Goody powders multiple times a day, which I recommended to stop. cc: Mik Rehman MD
[2018-11-14] MEDS: PREMARIN IV SCH ×2 (03:21→11:25)
--- NOTE | 2018-11-14 06:07 | PROVIDER PROGRESS NOTE ---
- Subjective Pt seen and examined. Pt is s/p 2 units of pRBC secondary to symptomatic anemia. Pt still receiving treatment with IV Estrogen for menorrhagia. Reports bleeding significantly improved. Describes light spotting. Denies F/C/SOB/CP. Physical Exam Objective Vital Signs - 8 hr 11/14/18 00:00 11/14/18 04:00 Temperature 98.7 F 98.1 F Pulse Rate 76 75 Blood Pressure 103/61 107/57 O2 Sat by Pulse Oximetry 100 100 - Constitutional General Appearance: appears well, alert, no apparent distress - RESPIRATORY Respiratory: lungs clear, normal breath sounds - CARDIOVASCULAR Cardiovascular: regular rate, rhythm - GASTROINTESTINAL (ABDOMEN) Abdominal Exam: non tender, soft - GENITOURINARY Female Genitalia/Pelvic Exam: external exam normal - MUSCULOSKELETAL Extremity: non-tender, no calf tenderness - PSYCHIATRIC Psych/Mental Status: normal mood/affect, oriented x 3 Active Medications Generic Name Dose Route Start Last Admin Trade Name Freq PRN Reason Stop Dose Admin Estrogens Conjugated 25 mg 11/13/18 13:45 11/14/18 03:21 Premarin IV 11/14/18 08:46 25 mg Q6H SURI Administration Iron/Vitamin C 1 each 11/13/18 11:30 11/13/18 20:51 Icar-C PO 1 each BID SURI Administration Medroxyprogesterone Acetate 10 mg 11/13/18 21:00 Provera PO BID SURI Morphine Sulfate 2 mg 11/11/18 21:03 11/13/18 20:48 Morphine IV 2 mg Q3H PRN PRN Administration Pain Multivitamins/Minerals 1 each 11/13/18 11:30 11/13/18 12:35 Centrum Silver PO 1 each DAILY SURI Administration Nicotine 14 mg 11/11/18 21:04 11/13/18 08:01 Nicoderm Patch TD 14 mg DAILY SURI Administration Ondansetron HCl 4 mg 11/11/18 21:03 Zofran IV Q4-6H PRN PRN Nausea And Vomiting Pantoprazole Sodium 40 mg 11/12/18 11:45 11/13/18 20:51 Protonix PO 40 mg BID SURI Administration Laboratory Results - last 24 hr 11/13/18 11/13/18 11/13/18 07:13 07:13 07:13 WBC RBC Hgb Hct MCV MCH MCHC RDW Std Deviation Plt Count MPV Immature Gran % (Auto) Neut % (Auto) Lymph % (Auto) [place] % (Auto) Eos % (Auto) Baso % (Auto) Immature Gran # (Auto) Neut # (Auto) Lymph # (Auto) [place] # (Auto) Eos # (Auto) Baso # (Auto) Segmented Neutrophils Band Neutrophils Lymphocytes Monocytes Nucleated RBCs Atypical Lymphocytes Hypochromia Large Platelets Anisocytosis Microcytosis Sodium Potassium Chloride Carbon Dioxide Anion Gap BUN Creatinine Estimated GFR/1.73 m2 BUN/Creatinine Ratio Glucose Calculated Osmolality Calcium Iron 22 L TIBC 479 % Saturation 5 Unsat Iron Binding 457 H Ferritin 13 CA 125 Antigen Vitamin B12 827 Folate 14.6 11/13/18 11/13/18 11/13/18 07:13 07:13 07:13 WBC 7.76 RBC 4.15 L Hgb 8.0 L Hct 29.9 L MCV 72.0 L MCH 19.3 L MCHC 26.8 L RDW Std Deviation 22.8 H Plt Count 288 MPV 9.8 Immature Gran % (Auto) 0.3 Neut % (Auto) 69.1 Lymph % (Auto) 20.0 L [place] % (Auto) 8.5 Eos % (Auto) 1.5 Baso % (Auto) 0.6 Immature Gran # (Auto) 0.02 Neut # (Auto) 5.36 Lymph # (Auto) 1.55 [place] # (Auto) 0.66 H Eos # (Auto) 0.12 Baso # (Auto) 0.05 Segmented Neutrophils 66 Band Neutrophils 2 H Lymphocytes 22 Monocytes 6 Nucleated RBCs 1 H Atypical Lymphocytes 4.0 Hypochromia 2+ Large Platelets 1+ Anisocytosis 3+ Microcytosis 3+ Sodium 140 Potassium 3.7 Chloride 104 Carbon Dioxide 24 L Anion Gap 12 BUN 6 L Creatinine 0.7 Estimated GFR/1.73 m2 > 60 BUN/Creatinine Ratio 9 Glucose 82 Calculated Osmolality 276 Calcium 9.4 Iron TIBC % Saturation Unsat Iron Binding Ferritin CA 125 Antigen SEE COMMENTS Vitamin B12 Folate - Assessment & Plan (1) GIB (gastrointestinal bleeding) Status: Resolved (2) Ovarian cyst Status: Chronic (3) Uterine fibroid Status: Chronic (4) Menorrhagia Status: Resolved - Progress Note Disposition: ASSESSMENT: 43-year-old, G2, P1-0-1-1- with multiple uterine fibroids, hype rpigmented vaginal lesions, anemia, vaginal bleeding and gastric ulcers. 1. Currently hemodynamically stable s/p 2 units of packed red blood cells. Vaginal bleeding resolving. Will complete IV estrogen for 24 hr. Reviewed risks of VTE increased with tobacco use. Recommend SCD when in bed and promote increase ambulation. Will d/c home on Provera 10mg PO BID. Rx sent to pharmacy 2. Pelvic ultrasound shows multiple leiomyomas. Ovarian mass suggestive of a hemorrhagic cyst. CA-125 wnl. 3. Recommend Pap smear, endometrial biopsy, biopsy of vaginal lesions as out pt procedure 4. Consult greatly appreciated. [employer] signing off. Please feel free to contact our team if you have any additional questions or concerns while pt remains in pt status
[2018-11-14 07:26] LABS: BASO# 0.05 X1000 (0.0-0.2); BASO% 0.6 % (0.0-0.8); EOS# 0.11 X1000 (0.0-0.7); EOS% 1.4 % (0.0-10.0); HEMATOCRIT 25.5 % (37.0-47.0); HEMOGLOBIN 6.8 g/dL (12.0-16.0); IMM GRAN# 0.02 X1000 (0.0-0.04); IMM GRAN% 0.3 % (0.0-0.5); LYMPH# 1.81 X1000 (1.2-3.4); LYMPH% 22.7 % (20.5-51.1); MCH 19.2 PG (27-31); MCHC 26.7 g/dL (33-37); MCV 71.8 FL (81-99); MONO# 0.87 X1000 (0.11-0.59); MONO% 10.9 % (1.7-9.3); MPV 9.2 FL (7.4-10.4); NEUT% 64.1 % (42.2-75.2); PLT 239 X1000 (130-400); RBC 3.55 XMIL (4.2-5.4); RDW 23.4 % (11.5-14.5); WBC 7.96 X1000 (4.8-10.8)
[2018-11-14 07:45] LABS: AGAP 12; BUN 10 mg/dL (8-22); CALCIUM 8.9 mg/dL (8.8-10.2); CHLORIDE 105 mmol/L (98-107); COSMO 279; CREATININE 0.8 mg/dL (0.5-0.9); ESTIMATED GFR > 60; GLUCOSE 77 mg/dL (70-104); POTASSIUM 3.8 mmol/L (3.5-5.1); SODIUM 141 mmol/L (136-145); TCO2 24 mmol/L (25-35)
[2018-11-14] MEDS: ICAR-C PO SCH (08:37)
[2018-11-14] MEDS: NICODERM PATCH TD SCH (08:37)
[2018-11-14] MEDS: CENTRUM SILVER PO SCH (08:37)
[2018-11-14] MEDS: PROTONIX PO SCH (08:37)
[2018-11-14] MEDS ORDERED: NS 500 ML IV ONE (09:24)
[2018-11-14] MEDS ORDERED: PREMARIN IV SCH (10:45)
[2018-11-14] MEDS ORDERED: FLU VACCINE IM ONE (12:41)
[2018-11-14 14:41] VITALS: BP 126/76
--- NOTE | 2018-11-14 16:08 | GASTROENTEROLOGY PROGRESS NOTE ---
DATE: 11/14/2018 SUBJECTIVE: Ms. Bean is a 43-year-old female who was sitting on the side of the bed, Denied any nausea, vomiting, diarrhea or abdominal pain, expressed feeling much better. OBJECTIVE: Vital Signs: Temperature 97.2 degrees, pulse 56, respirations 17, blood pressure 105/74, oxygen saturation 100% on room air. Weight 115 pounds, BMI 18.2. General: She is alert, oriented x3, in no acute distress. HEENT: Pale conjunctivae. No icterus. PERRL. Neck: Supple. Lungs: Clear to auscultation in anterior and posterior simental. Cardiovascular: Regular rate and rhythm. No rubs or gallops heard on auscultation. Abdomen: Soft, nontender, nondistended. Active bowel sounds heard in all 4 quadrants. Extremities: No cyanosis, clubbing, or edema noted. Pedal pulses 2+ present bilaterally. Neurologic: Alert and orient x3. LABORATORY DATA: WBCs 7.9, RBC 3.55, hemoglobin is 6.8, hematocrit of 25.5, platelet count of 239,000. Sodium 141, potassium 3.8, chloride 105, carbon dioxide 24, anion gap 12, BUN 10, creatinine 0.8. Iron is 22, TIBC 479, calcium 8.9. Urine showed trace of protein, blood and WBCs. Pelvic ultrasound showed fibroid uterus, left ovarian cyst. Abdomen and pelvis CT showed multiple calcific pelvic mass which may simply be an enlarged uterus containing multiple fibroids as well as multiple large left ovarian cysts. IMPRESSION AND PLAN: Abdominal pain Nausea/Vomiting GI bleed Vaginal bleed Dysphagia Uterine fibroids Smoker Marijuana abuse Alcohol abuse PLAN: We will continue patient with the regular diet. Her EGD showed erosive gastritis and mild duodenal inflammation. We have advised the primary care provider to have a DOCK PUMPER consult for her vaginal bleeding. Her hemoglobin and hematocrit today are 6.8 and 24.5, and will continue to monitor her CBC and BMP. We will continue patient with her GI prophylaxis, Protonix 40 mg p.o. twice a day for 6 to 8 weeks, continue iron and multivitamin. We will continue to follow the plan of care per PCP. Discussed the risk of smoking, alcohol and marijuana use, advised patient to stop using these substance and health hazards associated with it. Patient acknowledges understanding of the instruction. Repeat EGD in three months, we will follow up as an outpatient in our clinic once she is discharged in 4 to 6 weeks. This plan was discussed with Dr. Jansen. Please give us a call for any further questions or consults. Dictated by BEKAH Garcia for Blayne Jansen MD Physician Attestation I have seen and examined the patient. I have discussed and reviewed the the note by Rola GODFREY and agree with findings and plan as documented. In brief, Ms. Liliana Bean is a 43 year old woman with history of KRISTY and menorrhagia who presented with symptomatic KRISTY found to have gastritis, duodenitis, and small gastric ulcer likely from copious NSAID use. Recommend continue PPI PO BID for 3 months and repeat outpatient EGD to assess for ulcer healing. On iron replacement therapy. She needs evaluation by DOCK PUMPER for vaginal bleeding. Follow-up in GI clinic. Will sign off. Please call with questions. MTDD
--- NOTE | 2018-11-14 19:42 | DISCHARGE SUMMARY ---
ADMISSION DATE: 11/11/2018 DISCHARGE DATE: 11/14/2018 DIAGNOSES: 1. Symptomatic anemia status post transfusion of 2 units packed red blood cells very likely secondary to menorrhagia. 2. Multiple uterine fibroids with vaginal bleeding. The patient is being followed by Dr. Arechiga, obstetrics and gynecology. She was treated with intravenous estrogen. 3. Menorrhagia. 4. Gastric ulcer . CONSULT: 1. Dr. Blayne Jansen. 2. Adela Arechiga. DIAGNOSTICS: 1. CT of the abdomen and pelvis revealed multiple nonspecific pelvic masses which may simply be enlarged uterus containing multiple fibroids as well as multiple large left ovarian cysts. 2. Pelvic ultrasound revealed fibroid uterus, left ovarian cyst, smaller than the abnormality which was demonstrated on the CT. HOSPITAL COURSE: Ms Bean presented to the emergency room with nausea and abdominal pain. She has a history of taking multiple goodies powders a day and has so daily for many years. She was found to have a hemoglobin and hematocrit of 5.5 and 22.4 for which she was transfused 2 units. She was evaluated by Dr. Arechiga in [facility] who gave IV estrogen and has discharged the patient on Provera 10 mg p.o. b.i.d. CA-125 was drawn which came back at 7. She was recommended by Dr. Arechiga to have a Pap smear, endometrial biopsy and biopsy of vaginal lesions as an outpatient procedure and according to the chart this was discussed with the patient by Dr. Arechiga. She is placed on a PPI 40 mg b.i.d. She underwent an EGD which revealed erosive gastritis in the distal antrum with small superficial gastric antral ulcers measuring 5 mm with no active bleeding or stigmata of bleeding with recommendations to start Icar C b.i.d. with multivitamin daily for 3 months, continue PPI b.i.d. for 3 months and to stop smoking. Anti-reflux diet was also discussed with the patient per gastroenterology. DISCHARGE PHYSICAL EXAM: Vital signs: Blood pressure is 115/67, heart rate of 60, respirations 16, temperature 97.9 degrees oral with room air saturations 98 to 100. Cardiovascular: Regular rate and rhythm. S1 and S2 appreciated. She has no lower extremity edema. Calves are nontender bilateral, peripheral pulses palpable x4 extremities. Pulmonary: Breath sounds are clear. No increased work of breathing noted. Chest rise fall symmetric respiration. Chest wall is nontender to palpation. Gastrointestinal: Soft, nontender, nondistended with bowel sounds in all 4 quadrants. : No CVA or suprapubic tenderness. Neurologic: She is alert and oriented x3. Skin is warm and dry. DISCHARGE MEDICATIONS: 1. Protonix 40 mg p.o. b.i.d. 2. Centrum Silver 1 p.o. daily. 3. Provera 10 mg p.o. b.i.d. for 30 days. 4. Icar C 1 p.o. b.i.d. Prescription for Provera was given per Dr. Arechiga. FOLLOWUP: 1. Dr. Doug Leon 12/08/2018 at [address] Arechiga, patient has been instructed to call to schedule an appointment in 1 to 2 weeks. She has been instructed to call to be seen sooner or return to emergency room for any syncope, dizziness, chest pain, palpitations, shortness of breath, cough, fever, chills, temperature greater than 101, any nausea, vomiting, diarrhea, constipation, black or bloody vomitus or stools, hematuria, dysuria, frequency, urgency, any calf tenderness or for any questions or concerns that she may have. She is being discharged home in stable condition with family members. TIME SPENT: Greater than 30 minutes. Dictated by BEKAH Martinez for Mik Rehman MD cc: BEKAH Martinez MD [facility]
[2018-11-14] MEDS ORDERED: PROVERA PO SCH (21:00)
== END 2018-11-14 17:44 | disposition home or self-care (01) | DRG 761 ==
LOC: P.ED 13:24 → 3N 18:18 → SUATTDRO 18:18
PROVIDERS: ATTEND Internal Medicine